=== PATIENT | female | born 1955 | race Caucasian/White ===

== ENCOUNTER 2017-05-23 12:25 | Day surgery (SDC) | payer BC ==
[2017-05-23] MEDS ORDERED: PROPOFOL 80 ML (14:57)
[2017-05-23] MEDS ORDERED: LIDOCAINE 2% (SDV) 5 ML INJ (14:57)
== END 2017-05-23 18:32 | disposition home or self-care (01) ==
LOC: GIL 12:25
DX: Z12.11 Encounter for screening for malignant neoplasm of colon (principal); K29.50 Unspecified chronic gastritis without bleeding; D12.5 Benign neoplasm of sigmoid colon; K62.1 Rectal polyp; K64.8 Other hemorrhoids; K57.90 Diverticulosis of intestine, part unspecified, without perforation or abscess without bleeding; E03.9 Hypothyroidism, unspecified; I10 Essential (primary) hypertension
CPT/HCPCS: 43239; 88305; 88312